=== PATIENT | male | born 1990 | race Caucasian/White ===

== ENCOUNTER 2017-04-05 02:57 | Emergency (ER) | payer BC ==
[~2017-04-05] VITALS: Ht 172.7 cm; Wt 182.0 kg
[2017-04-05 02:59] VITALS: Ht 172.7 cm; Wt 182.0 kg
[2017-04-05] MEDS ORDERED: HYDROCODONE/APAP (10/325) TAB PO ONE (04:00)
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
== END 2017-04-05 04:42 | disposition left against medical advice (07) ==
LOC: FTE 02:57
DX: S09.93XA Unspecified injury of face, initial encounter (principal); S09.90XA Unspecified injury of head, initial encounter; Y08.89XA Assault by other specified means, initial encounter
CPT/HCPCS: 99283; Z7610